=== PATIENT | female | born 1995 | race Caucasian/White ===

== ENCOUNTER 2021-02-24 23:00 | Emergency (ER) | payer OTHER ==
[~2021-02-24 23:00] MED LIST: PROVERA10 M1 PO; VIBRAMYCIN100 MG PO
== END 2021-02-25 01:15 | disposition home or self-care (01) ==
LOC: FER 23:00
DX: R51.9 Headache, unspecified (principal); F17.210 Nicotine dependence, cigarettes, uncomplicated
CPT/HCPCS: 96372; 99283; J0780; J1885